=== PATIENT | male | born 1955 | race Caucasian/White ===

== ENCOUNTER → 2017-01-13 | Outpatient (CLI) | payer OTHER ==
[~2017-01-13] MED LIST: LIDOCAINE 1% 300 MG/30 ML SDV ONE; NA BICARBONATE 50 MEQ/50 ML VIAL ONE
[2017-01-13 12:09] LABS: PROTEIN, CSF 86 mg/dL (12-60)
[2017-01-13 12:18] LABS: CSF APPEARANCE CLEAR (CLEAR); CSF COLOR COLORLESS (COLORLESS); CSF SUPERNATANT COLORLESS (COLORLESS); WBC, CSF 0 /mm3 (0-5)
[2017-01-14 14:19] LABS: VDRL CSF Negative (Negative)
[2017-01-15 09:26] LABS: ALBUMIN CSF 50.9 mg/dL (<=27.0); ALBUMIN SERUM 4080 mg/dL; CSF IGG INDEX 0.47 (<=0.85); IGG CSF 4.3 mg/dL (<=8.1); IGG SERUM 688 mg/dL (767 - 1590); IGG/ALBUMIN CSF 0.08 (<=0.21); IGG/ALBUMIN SERUM 0.17 (<=0.40); SYNTHESIS RATE 1.71 mg/24 h (<=12)
[2017-01-15 12:18] LABS: INTERPRETATION 0 bands (<4); OLIGOCLONAL BANDING CSF 0 bands; OLIGOCLONAL BANDING SERUM 0 bands
[2017-01-15 14:12] LABS: HSV 1 PCR, CSF Negative (Negative); HSV 2 PCR, CSF Negative (Negative)
== END ==
LOC: FIMAGING 08:38
PROVIDERS: ATTEND Internal Medicine Rheumatology
PROC: 009U3ZX Drainage of Spinal Canal, Percutaneous Approach, Diagnostic (ICD-10-PCS; principal; 2017-01-13)
DX: R42 Dizziness and giddiness (principal); R41.89 Other symptoms and signs involving cognitive functions and awareness
CPT/HCPCS: 82784-90; 83916-90; 86341-90; 86592-90; 86618-90; 87529-90

== ENCOUNTER 2017-08-28 21:42 | Emergency (ER) | payer OTHER ==
--- NOTE | 2017-08-28 21:49 | CPEKG ---
Heart Rate: 74 RR Interval: 811 P-R Interval: 152 QRSD Interval: 112 QT Interval: 396 QTC Interval: 440 P Sweeny: 71 QRS Sweeny: 72 T Wave Sweeny: 56 EKG Severity - ABNORMAL ECG - EKG Impression: SINUS RHYTHM EKG Impression: PROBABLE LEFT ATRIAL ABNORMALITY EKG Impression: INCOMPLETE RIGHT BUNDLE BRANCH BLOCK Electronically Signed By: Russ Yu 29-Aug-2017 05:24:27
[2017-08-28 21:50] VITALS: BP 177/95
[2017-08-28 22:09] LABS: PLATELET COUNT 183 10^3/uL (150-400)
--- NOTE | 2017-08-28 22:09 | EDPHY ---
H & P Stated Complaint: syncopy, facial lacs Time Seen by Provider: 08/28/17 21:50 HPI/ROS: Chief Complaint: Fall, facial lacerations HPI: 62-year-old male states that he he stood up after eating dinner and subsequently fell forward, his face struck the dinner plate he was caring which broke and sustained lacerations. Denies a loss of consciousness. Denies any chest pain. Per family has history of chronic dizziness. He does admit to drinking 1 glass of wine tonight. No palpitations or heart racing. Had a similar episode many years ago. No neck pain. No numbness or weakness. No nausea or vomiting. No recent illness. Patient is alert and oriented but is answering quite slowly. He is also keeping his eyes somewhat closed when he speaks. ROS: 10 point Review of Systems is negative except as noted in the HPI. PMH: Denies Social History: No smoking, occasional alcohol, denies other drug use Family History: non-contributory Physical Exam: Gen: Awake, Alert, No Distress HEENT: Face: He has got has ecchymosis and edema on the bridge of his nose with to lacerations, 1 over the bridge of his nose the 2nd on his forehead. There are also small punctate abrasions. Nose: no rhinorrhea Eyes: PERRLA, EOMI Mouth: Moist mucosa Neck: Supple, no JVD, nontender Chest: nontender, lungs clear to auscultation Heart: S1, S2 normal, no murmur Abd: Soft, non-tender, no guarding Back: no CVA tenderness, no midline tenderness Ext: no edema, non-tender Skin: no rash Neuro: CN II-XII intact, Sensation grossly intact, Strength 5/5 in bilateral upper and lower extremities - Personal History Current Tetanus/Diphtheria Vaccine: Yes Current Tetanus Diphtheria and Acellular Pertussis (TDAP): Yes - Medical/Surgical History Hx Asthma: No Hx Chronic Respiratory Disease: No Hx Diabetes: No Hx Cardiac Disease: No Hx Renal Disease: No Hx Cirrhosis: No Hx Alcoholism: No Hx HIV/AIDS: No Hx Splenectomy or Spleen Trauma: No Other PMH: alzheimers type 3 - Social History Smoking Status: Former smoker Constitutional: Initial Vital Signs Temperature (C) 36.4 C 08/28/17 21:46 Heart Rate 74 08/28/17 21:46 Respiratory Rate 16 08/28/17 21:46 Blood Pressure 177/95 H 08/28/17 21:46 O2 Sat (%) 96 08/28/17 21:46 O2 Delivery Mode Room Air Allergies/Adverse Reactions: No Known Allergies Allergy (Unverified 08/28/17 21:45) Home Medications: Medication Instructions Recorded Amoxicillin/Clavulanate Pot 875 mg PO BID #10 tab 08/28/17 [Augmentin 875 MG TAB (*)] Prednisone 08/28/17 Synthroid 08/28/17 Medical Decision Making - Diagnostics EKG Interpretation: ECG time 9:47 p.m., sinus rhythm with a rate of 74. There is a incomplete right bundle branch block, abnormal P-wave morphology suggestive of a possible left atrial abnormality, no acute ST or T-wave changes. There are no prior ECGs available for comparison. Imaging Results: Imaging Impressions Face CT 08/28/17 22:05 Impression: 1. Mild atrophy and probable small vessel gliosis. 2. Negative for intracranial hemorrhage. CT of the Facial Bones (Without Contrast) Clinical Indications: Pain following trauma. Technique: Noncontrast axial images were obtained through the facial bones at 1.25 mm thickness. Sagittal and coronal reformations are performed. Dose reduction techniques were utilized. Findings: A displaced fracture is not identified. An abrasion is noted on the right side of the nose and there may be a small foreign body in the region. Nasal bone lucencies are noted which could reflect undisplaced fractures. The paranasal sinuses are clear. The nasal septum is midline. Soft tissue swelling is seen in the frontal region, on the bridge of the nose and about the lower orbits. Impression: Soft tissue injury is seen without a displaced fracture identified. Results called and discussed with Russ Yu MD on 08/28/2017 at 22:[address] 08/28/17 22:05 Impression: 1. Mild atrophy and probable small vessel gliosis. 2. Negative for intracranial hemorrhage. CT of the Facial Bones (Without Contrast) Clinical Indications: Pain following trauma. Technique: Noncontrast axial images were obtained through the facial bones at 1.25 mm thickness. Sagittal and coronal reformations are performed. Dose reduction techniques were utilized. Findings: A displaced fracture is not identified. An abrasion is noted on the right side of the nose and there may be a small foreign body in the region. Nasal bone lucencies are noted which could reflect undisplaced fractures. The paranasal sinuses are clear. The nasal septum is midline. Soft tissue swelling is seen in the frontal region, on the bridge of the nose and about the lower orbits. Impression: Soft tissue injury is seen without a displaced fracture identified. Results called and discussed with Russ Yu MD on 08/28/2017 at 22:47 Imaging: Discussed imaging studies w/ stain applicator Radiologist Procedures: Procedure: Laceration 1. repair. Verbal consent was obtained from the patient. The 2.5 cm laceration on the bridge of the nose was anesthetized in the usual fashion. The wound was irrigated, draped and explored to its base with a gloved finger. Several porcelain foreign bodies were removed. There were no deep structures involved. The wound was repaired with a layered closure, 2, 6-0 Vicryl horizontal mattress sutures to close the deep stay structures followed by 6, 6-0 Ethilon simple interrupted sutures. The wound repair was a layered facial laceration. The procedure was performed by myself. Procedure: Laceration 2. repair. Verbal consent was obtained from the patient. The 2 cm laceration on the forehead was anesthetized in the usual fashion. The wound was irrigated, draped and explored to its base with a gloved finger. There were no deep structures involved. No tendon injury was identified. The wound was repaired with 5, 6-0 Ethilon simple interrupted sutures. The wound repair was single where facial laceration. The procedure was performed by myself. ED Course/Re-evaluation: Patient's is at his bedside. She states that the patient is at his baseline. This is not an uncommon event for him as he is frequently dizzy. He did not have a loss of consciousness. CT scan of the face shows possible nasal bridge fractures. Because of this no likely of an open fracture he has been started on Augmentin. Lacerations have been repaired by me. Instructions for further falls, syncope, signs of infection or other concerns have been provided to the patient. I do not believe the patient a syncopal episode. He has had multiple since same. No evidence of acute arrhythmia. No murmurs. CT scan of brain is unremarkable. Will discharge with follow-up as stated. - Data Points Laboratory Results: Laboratory Results 08/28/17 21:50 08/28/17 21:50 08/28/17 08/28/17 21:50 21:50 WBC 6.86 10^3/uL 10^3/uL (3.80-9.50) RBC 5.43 10^6/uL 10^6/uL (4.40-6.38) Hgb 16.3 g/dL g/dL (13.7-17.5) Hct 49.3 % % (40.0-51.0) MCV 90.8 fL fL (81.5-99.8) MCH 30.0 pg pg (27.9-34.1) MCHC 33.1 g/dL g/dL (32.4-36.7) RDW 13.2 % % (11.5-15.2) Plt Count 183 10^3/uL 10^3/uL (150-400) MPV 9.5 fL fL (8.7-11.7) Neut % (Auto) 89.4 % H % (39.3-74.2) Lymph % (Auto) 8.6 % L % (15.0-45.0) Greenlee % (Auto) 1.6 % L % (4.5-13.0) Eos % (Auto) 0.0 % L % (0.6-7.6) Baso % (Auto) 0.1 % L % (0.3-1.7) Nucleat RBC Rel Count 0.0 % % (0.0-0.2) Absolute Neuts (auto) 6.13 10^3/uL 10^3/uL (1.70-6.50) Absolute Lymphs (auto) 0.59 10^3/uL L 10^3/uL (1.00-3.00) Absolute Monos (auto) 0.11 10^3/uL L 10^3/uL (0.30-0.80) Absolute Eos (auto) 0.00 10^3/uL L 10^3/uL (0.03-0.40) Absolute Basos (auto) 0.01 10^3/uL L 10^3/uL (0.02-0.10) Absolute Nucleated RBC 0.00 10^3/uL 10^3/uL (0-0.01) Immature Gran % 0.3 % % (0.0-1.1) Immature Gran # 0.02 10^3/uL 10^3/uL (0.00-0.10) Sodium 145 mEq/L mEq/L (135-145) Potassium 4.9 mEq/L mEq/L (3.5-5.2) Chloride 103 mEq/L mEq/L (97-110) Carbon Dioxide 29 mEq/l mEq/l (22-31) Anion Gap 13 mEq/L mEq/L (8-16) BUN 22 mg/dL mg/dL (7-23) Creatinine 1.2 mg/dL mg/dL (0.7-1.3) Estimated GFR > 60 Glucose 90 mg/dL mg/dL (70-100) Calcium 9.4 mg/dL mg/dL (8.5-10.4) Troponin I < 0.012 ng/mL ng/mL (0.000-0.034) Ethyl Alcohol 25 mg/dL H mg/dL (0-10) Departure - Departure Disposition: Home, Routine, Self-Care Clinical Impression: Fall, Facial laceration, Nasal fracture Condition: Good Instructions: Care For Your Stitches (ED), Facial Laceration (ED), Nasal Fracture (ED) Additional Instructions: Please take your full course of antibiotics. Sutures need to be removed in 5 days, you can return here or follow up with your primary care physician for this. Return to the emergency department for redness, discharge from the wounds or other signs of infections, worsening headache, uncontrolled nausea vomiting, fainting, or any other concerns. Referrals: Patient,NotPresent [Unknown] - As per Instructions Prescriptions: Amoxicillin/Clavulanate Pot [Augmentin 875 MG TAB (*)] 875 mg PO BID #10 tab
[2017-08-28] MEDS ORDERED: AMOXICILLIN/CLAVULANATE POT 875/125 MG TAB PO ONE ×2 (23:21→23:23)
== END 2017-08-28 23:39 | disposition home or self-care (01) ==
LOC: EDUNIT#
PROC: 09QKXZZ Repair Nasal Mucosa and Soft Tissue, External Approach (ICD-10-PCS; principal; 2017-08-28)
PROC: 0HQ1XZZ Repair Face Skin, External Approach (ICD-10-PCS; 2017-08-28)
DX: S02.2XXA Fracture of nasal bones, initial encounter for closed fracture (principal); S01.81XA Laceration without foreign body of other part of head, initial encounter; G30.9 Alzheimer's disease, unspecified; Z87.891 Personal history of nicotine dependence; W18.09XA Striking against other object with subsequent fall, initial encounter
CPT/HCPCS: G0480

== ENCOUNTER 2018-05-03 12:26 | Emergency (ER) | payer OTHER ==
--- NOTE | 2018-05-03 12:26 | EDPHY ---
H & P Time Seen by Provider: 05/03/18 12:27 Constitutional: Initial Vital Signs Temperature (C) 37 C 05/03/18 12:32 Heart Rate 69 05/03/18 12:32 Respiratory Rate 18 05/03/18 12:32 Blood Pressure 170/103 H 05/03/18 12:32 O2 Sat (%) 96 05/03/18 12:32 O2 Delivery Mode Room Air Allergies/Adverse Reactions: No Known Allergies Allergy (Verified 05/03/18 12:40) Home Medications: Medication Instructions Recorded Amoxicillin/Clavulanate Pot 875 mg PO BID #10 tab 08/28/17 [Augmentin 875 MG TAB (*)] Prednisone 08/28/17 Synthroid 08/28/17 Medical Decision Making - Diagnostics Imaging Results: Imaging Impressions Head CT 05/03/18 12:33 Impression: 1. Stable mild age-related atrophy. 2. No hemorrhage, mass effect, or definite acute peripheral infarct. 3. Possible mild midbrain atrophy. This can be seen with supranuclear palsy. If symptoms worsen, additional imaging may be necessary. Findings discussed with Henrique Mena MD at 13:13 hour, 05/03/2018. 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 Per EMS the patient was walking up two stairs when he fell backwards onto a hardwood floor landing and hit his head. Per EMS the patient had stable vital signs, a normal blood glucose level, and was mentating normally. He denies any neck pain. No fever, chest pain, shortness of breath, abdominal pain, urinary or bowel complaints, numbness, paresthesias. REVIEW OF SYSTEMS: A comprehensive 10 system review of systems is otherwise negative aside from elements mentioned in the history of present illness and medical decision making. PHYSICAL EXAM: HR, BP, O2 Sat, RR. Temp noted General Appearance: Alert, well hydrated, appropriate, and non-toxic appearing. Head: Atraumatic without scalp tenderness or obvious injury Eyes: Left eye has a dilated pupil and has redness; this is chronic. Right pupil equal, round, reactive to light and accommodation, EOMI, no trauma, no injection. Ears: Clear bilaterally, no perforation, normal landmarks Nose: Atraumatic, no rhinorrhea, clear. Throat: There is no erythema or exudates, no lesions, normal tonsils, mucus membranes moist. Neck: Supple, 2+ carotid upstroke, nontender, no lymphadenopathy. Respiratory: No retractions, no distress, no wheezes, and no accessory muscle use. Lungs are clear to auscultation bilaterally. Cardiovascular: Regular rate and rhythm, no murmurs, rubs, or gallops. Bilateral carotid, radial, dorsalis pedis, and posterior tibial pulses intact. Good capillary refill all extremities. Gastrointestinal: Abdomen is soft, nontender, non-distended, no masses, no rebound, no guarding, no peritoneal signs. Musculoskeletal: Normal active ROM of all extremities, atraumatic. Neurological: Alert, appropriate, and interactive. No afferent pupillary response in left eye due to supranuclear palsy. Skin: No rashes, good turgor, no nodules on palpation. Past medical history: Supranuclear progressive palsy Past surgical history: Denies Family history: Denies Social history: Lives in [place], , retired DIAGNOSTICS/PROCEDURES/CRITICAL CARE TIME: Head CT: No acute findings DIFFERENTIAL DIAGNOSIS: The differential diagnosis for the patient's head injury included but was not limited to concussion, skull fracture, intra-parenchymal contusion, subarachnoid , subdural and epidural hematoma. MEDICAL DECISION MAKING: The patient is a 62 y/o male with a history of supranuclear progressive palsy arriving via EMS in a c-collar after falling, hitting his head, and losing consciousness. Patient has a history of chronic balance problems and left-sided facial droop. As he possibly lost consciousness patient will need a head CT. 1230: I removed patient's c-collar as he cleared his c-spine. 1314: I spoke with the radiologist who reports that there are no acute findings on the head CT. 1315: Reassessed patient and discussed imaging findings. Patient most likely has a concussion. I have advised him to follow up with his PCP. Strict return precautions provided; patient is comfortable with this plan. - Data Points Medications Given: Discontinued Medications Sodium Chloride (Ns) 1,000 mls @ 0 mls/hr IV ONCE ONE; Wide Open PRN Reason: Protocol Stop: 05/03/18 12:33 Last Admin: 05/03/18 13:58 Dose: Not Given Departure - Departure Disposition: Home, Routine, Self-Care Clinical Impression: Head injury Qualifiers: Encounter type: initial encounter Qualified Code(s): S09.90XA - Unspecified injury of head, initial encounter Fall Qualifiers: Encounter type: initial encounter Qualified Code(s): W19.XXXA - Unspecified fall, initial encounter Concussion Qualifiers: Encounter type: initial encounter Loss of consciousness presence/duration: with LOC of 30 min or less Qualified Code(s): S06.0X1A - Concussion with loss of consciousness of 30 minutes or less, initial encounter Condition: Good Instructions: Concussion (ED), Head Injury (ED) Additional Instructions: 1. Apply ice to sore areas and take 600mg ibuprofen every 6-8 hours or 650mg Tylenol every 4-6 hours for pain for the next few days. 2. Cognitive rest while symptoms are present. Avoid screen time including TV, phones, and computers until symptoms improve. 3. Physical rest while symptoms are present. Avoid any activities that could put you at further risk for a head injury until your symptoms resolve including contact sports, bicycling, etc. This may be 2 weeks or longer. 4. Follow up with your PCP for unimproved symptoms over the next 10-14 days. It' s not uncommon to experience fatigue, mood swings, and difficulty concentrating with concussions. 5. Return to the ED for severe headache, weakness or numbness on one side of your body, vision changes, or other worsening of condition. Referrals: Mario Sabillon MD [[facility] [place]] - As per Instructions Report Scribed for: Henrique Mena Report Scribed by: Ruth Brady Date of Report: 05/03/18 Time of Report: 12:27
[2018-05-03] MEDS ORDERED: NS 1,000 ML IV ONE (12:32)
[2018-05-03 14:20] VITALS: BP 167/95
== END 2018-05-03 14:15 | disposition home or self-care (01) ==
LOC: EDUNIT#
DX: S06.0X1A Concussion with loss of consciousness of 30 minutes or less, initial encounter (principal); E86.9 Volume depletion, unspecified; W10.9XXA Fall (on) (from) unspecified stairs and steps, initial encounter; Y92.9 Unspecified place or not applicable; Y93.9 Activity, unspecified; Y99.9 Unspecified external cause status

== ENCOUNTER → 2018-08-04 | Outpatient (CLI) | payer OTHER | LOC: BMCIMAGING 13:11 | PROVIDERS: ATTEND Family Medicine | DX: M79.89 Other specified soft tissue disorders (principal) ==

== ENCOUNTER → 2018-10-05 | Outpatient (CLI) | payer OTHER | LOC: FIMAGING 12:02 ==